=== PATIENT | female | born 1960 | race Caucasian/White ===

== ENCOUNTER 2023-10-15 14:10 | Emergency (ER) | payer MEDICARE, OTHER, SELFPAY ==
[2023-10-15 14:16] VITALS: BP 145/78
[2023-10-15 16:23] VITALS: BP 142/80
[2023-10-15 16:24] VITALS: BMI 29.0
[2023-10-15 17:11] LABS: Urine Albumin Negative (Neg - Trace); Urine Bilirubin Negative (Negative); Urine Character Clear (Clear); Urine Color Straw; Urine Glucose Negative (Negative); Urine Ketone Negative (Negative); Urine Leukocyte Negative (Negative); Urine Nitrite Negative (Negative); Urine Occult Blood 3+ (Negative); Urine Urobilinogen Negative (Neg - 1+); Urine pH 6.5 (5.0-9.0)
[2023-10-15 17:15] LABS: % Basophils 0.1 % (0-2); % Immature Granulocytes 0.6 % (0-0.5); % Lymphocytes 3.8 % (20.5-51.1); % Monocytes 3.5 % (1.7-9.3); Absolute Lymphocytes 0.3 10^3/uL (1.2-3.4); Absolute Monocytes 0.2 10^3/uL (0.1-0.6); Absolute Neutrophils 6.3 10^3/uL (1.4-6.5); Hematocrit 32.4 % (37.0-47.0); Hemoglobin 11.1 g/dL (12.0-16.0); Mean Corp Hgb Conc. 34.3 g/dL (33.0-37.0); Mean Corpuscular Hgb 35.5 pg (27.0-31.0); Mean Corpuscular Volume 103.5 fL (81.0-99.0); Mean Platelet Volume 9.2 fL (7.4-10.4); Nucleated Red Blood Cells % 0 %; Platelet Count 132 10^3/uL (130-400); Red Blood Cell Count 3.13 10^6/uL (4.20-5.40); Red Cell Dist. Width 16.9 % (11.5-14.5); White Blood Cell Count 6.9 10^3/uL (4.8-10.8)
[2023-10-15 17:21] LABS: Urine White Cell None Seen /HPF (0-5)
[2023-10-15 17:23] LABS: ALT (SGPT) 30 U/L (0-35); AST (SGOT) 24 U/L (14-36); Albumin 4.5 g/dl (3.5-5.0); Alkaline Phosphatase 68 U/L (38-126); Blood Urea Nitrogen 23 mg/dl (7-17); Calcium 10.5 mg/dl (8.4-10.2); Carbon Dioxide 28 mmol/L (22-30); Chloride 102 mmol/L (98-107); Estimated Creatinine Clearance 73 ml/min; Glucose 159 mg/dl (70-99); Magnesium 1.9 mg/dl (1.6-2.3); Potassium 3.9 mmol/L (3.5-5.1); Sodium 135 mmol/L (135-145); Total Bilirubin 0.7 mg/dl (0.2-1.3); Total Protein 7.1 g/dl (6.3-8.2); eGFR > 60.00
[2023-10-15] MEDS: DECADRON 10 MG IV (18:25)
[2023-10-15 18:32] VITALS: BP 143/82
--- NOTE | 2023-10-15 18:52 | ED.GENMED ---
History of Present Illness
General
Chief Complaint: Change in Mental Status
Source: patient and family
Exam Limitations: clinical condition
Time Seen by Provider: 10/15/23 16:33
Travel History
Have you had any contact with someone who has COVID-19?: No
Do you have any symptoms of coronavirus? Fever > 100 degrees, chills, cough, shortness of breath, sore throat, loss of taste or smell, muscle aches, or headache?: No
History of Present Illness
History of Present Illness:
This is a 62-year-old female presents with aphasia. The patient is states the symptoms have been worse over the last 3 days. Patient's actually adds that the symptoms began probably 10 days ago. Patient denies motor weakness. She has had
some urinary frequency but does have known mets in her abdomen. Patient was initially cared for at [place] but then transferred care to the [facility] for her study drug. She currently is off of that because she was having side effects. They had put
her on some steroids which she has been taking.
Past History
Past History
ED Past Medical History: Hypothyroidism and Other (Metastatic endometrial cancer, DVT)
Phy Exam
Physical Exam
Physical Exam:
CONSTITUTIONAL Patient alert and oriented to person, place and time. Well-appearing. Vital signs reviewed.
HEAD atraumatic, normocephalic.
EYES eyelids normal to inspection, Pupils equally round and reactive to light, Extraocular muscles intact, Conjunctiva normal, Sclera normal.
NECK normal range of motion, Trachea midline, no jugular venous distention.
RESPIRATORY CHEST No respiratory distress noted, Chest expansion equal, Bilateral breath sounds clear. Right chest wall port noted
CARDIOVASCULAR regular rate and rhythm, Heart sounds normal.
ABDOMEN abdomen nontender, Bowel sounds normal. No distention.
BACK normal inspection, no obvious deformities
UPPER EXTREMITY range of motion normal, Motor strength normal, no cyanosis, no edema.
LOWER EXTREMITY range of motion normal, Motor strength normal, no cyanosis, no edema.
NEURO moderate aphasia noted, no dysarthria, no focal deficits, no pronator drift..
Course
Orders/Labs/Results
Orders:
Orders
10/15/23 15:[address] [CT Head W/o Iv Contrast] Urgent
Comment:
Reason For Exam: confusion
10/15/23 17:00
Complete Blood Count/With Diff Urgent
Comprehensive Metabolic Panel Urgent
Magnesium Urgent
Urinalysis Reflex To Culture Urgent
Date Specimen was Collected: 10/15/23
Time Specimen was Collected: 16:58
Urine Microscopic Reflex Cult Urgent
10/15/23 18:22
Dexamethasone Sod Phosphate [Decadron] 10 mg IV NOW STA
Abnormal Lab Results
10/15/23
17:00
RBC 3.13 L 10^6/uL
(4.20-5.40)
Hgb 11.1 L g/dL
(12.0-16.0)
Hct 32.4 L %
(37.0-47.0)
MCV 103.5 H fL
(81.0-99.0)
MCH 35.5 H pg
(27.0-31.0)
RDW 16.9 H %
(11.5-14.5)
Absolute Lymphs (auto) 0.3 L 10^3/uL
(1.2-3.4)
Immature Gran % 0.6 H %
(0-0.5)
Neutrophils % 92.0 H %
(42.2-75.2)
Lymphocytes % 3.8 L %
(20.5-51.1)
BUN 23 H mg/dl
(7-17)
Glucose 159 H mg/dl
(70-99)
Calcium 10.5 H mg/dl
(8.4-10.2)
Ur Occult Blood Reflex 3+ A
(Negative)
Urine RBC 3-6 A /HPF
(0-2)
10/15/23 17:00
10/15/23 17:00
Vital Signs
Initial and Last Documented VS:
Initial Vital Signs
Temp Pulse Resp BP Pulse Ox
98.4 F 66 18 145/78 98
10/15/23 14:16 10/15/23 14:16 10/15/23 14:16 10/15/23 14:16 10/15/23 14:16
Last Documented Vital Signs
Temp Pulse Resp BP Pulse Ox
98.4 F 66 18 143/82 97
10/15/23 14:16 10/15/23 14:16 10/15/23 14:16 10/15/23 18:32 10/15/23 18:45
MDM/Problems Addressed
MDM/Problems Addressed:
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
*Radiology
Radiology exam reviewed: preliminary read by ED provider (Brain mass with hemorrhagic conversion)
*Pulse Oximetry
Patient hypoxic: no
*Cigarette Filter Inspector Interpretation
Rate: normal
Interpretation: normal
Rhythm: sinus
*Critical Care Note
Total Time (30-74mins, 75-104mins- exclusive of procedures): 45 minutes
Data Reviewed
Source: patient and family
Prescriptions/Medications Considered But Not Given:
Considered antiepileptics with neurosurgery at [facility] states no need at this time
Patient Management
Discussion with other providers: Gas Flow Regulator ([facility] neurosurgery Dr. Schneider)
Escalation/DeEscalation of care consider admission/obs:
62-year-old female with unfortunate history of metastatic endometrial cancer found to have a brain mass with hemorrhagic conversion and mass effect. Steroids given. Will give Kcentra in light of the fact that she took Eliquis this morning.
does confirm that she is on Eliquis. Discussed with [facility] neurosurgery. Transfer
ED Attending Note
-
Portions of this chart may have been created with voice recognition software.� Occasional wrong word or��sound alike� substitutions may have occurred due to the inherent limitations of voice recognition software.
Discharge Plan
Departure
Patient Disposition: Acute Care Hospital
Date of Disposition: 10/15/23
Time of Disposition: 18:53
Discharge Problem:
Brain mass, Intracranial hemorrhage
Referrals:
UNKNOWN - PT DOES,NOT KNOW [Family Provider] -
Hospital Transfer
I certify that the patient requires transfer: Yes
Interventions
Interventions:
*Risk Screen - Suicide Last Done: 10/15/23 14:16
*General Assessment Last Done: 10/15/23 14:16
*Neglect/Abuse Screening Last Done: 10/15/23 14:16
ED- Fall Risk Assessment Last Done: 10/15/23 16:25
*ED COVID-19 Vaccine History Last Done: 10/15/23 14:16
ED- Pulmonary Assessment Last Done: 10/15/23 16:25
ED- Neurological Assessment Last Done: 10/15/23 16:25
ED- Cardiac Assessment Last Done: 10/15/23 16:25
ED Swallowing Screen Last Done: 10/15/23 16:25
Discharge Date and Time
Print Language: LIBERIAN
[2023-10-15] MEDS: KCENTRA 80 UNIT IV (20:10)
[2023-10-15 20:37] VITALS: BP 139/91
[2023-10-15 21:11] VITALS: BP 143/86
== END 2023-10-15 21:14 | disposition short-term general hospital (02) ==
LOC: EMR 14:10
PROVIDERS: EMERGENCY PHYSICIAN Emergency Medicine
DX: I62.9 Nontraumatic intracranial hemorrhage, unspecified (principal); R47.01 Aphasia; G93.9 Disorder of brain, unspecified; R35.0 Frequency of micturition; R41.0 Disorientation, unspecified; C54.1 Malignant neoplasm of endometrium; C79.9 Secondary malignant neoplasm of unspecified site; E03.9 Hypothyroidism, unspecified; Z86.718 Personal history of other venous thrombosis and embolism; Z79.01 Long term (current) use of anticoagulants; Z88.8 Allergy status to other drugs, medicaments and biological substances; Z91.013 Allergy to seafood
CPT/HCPCS: 99291; 96374; 96375; 70450; 80053; 81003; 81015; 83735; 85025; J7168

== ENCOUNTER 2024-01-29 09:59 | Emergency (ER) | payer MEDICARE, OTHER, SELFPAY ==
[2024-01-29 10:00] VITALS: BP 139/84
[2024-01-29] MEDS: TYLENOL 1000 MG PO (10:45)
--- NOTE | 2024-01-29 10:52 | ED.GENMED ---
History of Present Illness
General
Chief Complaint: DVT/Possible Blood Clot
Source: patient and spouse
Exam Limitations: none
Time Seen by Provider: 01/29/24 10:16
Nursing documentation reviewed up to this point in time: agreed with
History of Present Illness
History of Present Illness:
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 She felt
slight discomfort in left calf yesterday and today awakened with increased pain, swelling. Denies CP or any new SOB. She restarted her Eliquis 2.5 mg BID this a.m. which she was told to do on her discharge instructions post brain surgery.
Past History
Past History
ED Past Medical History: Hyperthyroidism, Hypothyroidism and Other (Endometrial cancer w mets to lungs and brain, PE, DVT)
ED Past Surgical History: Other (recent brain surgery)
Social History
Tobacco: Non-smoker
Alcohol: None
Personal:
Living: with family
Review of Systems
Review of Systems
Allergies reviewed?: Yes
All Other Systems: ROS reviewed and negative except as documented in HPI and ROS
Constitutional: Denies fever
Respiratory: Denies trouble breathing
Cardiac: Denies chest pain
ABD/GI: Denies abdominal pain, nausea or vomiting
Musculoskeletal: Reports other (pain and swelling left calf)
Skin: Reports other (numerous billy across frontal scalp intact, Chest access port)
Phy Exam
Physical Exam
Physical Exam:
GENERAL: No acute distress. A&Ox3.
CONSTITUTIONAL: Afebrile.
EYES: clear, conjunctivae normal
ENMT: moist mucus membranes, Pharynx nl
RESPIRATORY: Regular respirations, nonlabored, lungs clear.
CARDIOVASCULAR: Regular rate and rhythm, no murmurs, no rubs.
GI: Soft, nontender, normal BS
MUSCULOSKELETAL: Left calf +1 swollen compared to R. Tender. Normal pedal pulse. Foot warm, pink brisk capillary refill. Moves with ease. Well perfused.
SKIN: Warm, dry, pink, Chest wall port.
PSYCH: Normal mood and affect. Well kept, interactive and appropriate
NEUROLOGIC: Awake, alert and oriented. No focal neurological deficits
Course
Orders/Labs/Results
Orders:
Orders
01/29/24 10:26
US Periph Venous LOWER Ext LT Urgent
Comment:
Reason For Exam: pain, swelling L calf, hx chronic DVT thigh
01/29/24 10:37
Acetaminophen [Tylenol] 1,000 mg PO NOW STA
01/29/24 10:44
Acetaminophen [Tylenol] 1,000 mg .ROUTE .STK-MED ONE
Vital Signs
Initial and Last Documented VS:
Initial Vital Signs
Temp Pulse Resp BP Pulse Ox
98.1 F 86 18 139/84 96
01/29/24 10:00 01/29/24 10:00 01/29/24 10:00 01/29/24 10:00 01/29/24 10:00
Last Documented Vital Signs
Temp Pulse Resp BP Pulse Ox
98.1 F 86 18 139/84 96
01/29/24 10:00 01/29/24 10:00 01/29/24 10:00 01/29/24 10:00 01/29/24 10:00
MDM/Problems Addressed
Differential Diagnosis Includes:
DVT
MDM/Problems Addressed:
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 She felt
slight discomfort in left calf yesterday and today awakened with increased pain, swelling. Denies CP or any new SOB. She restarted her Eliquis 2.5 mg BID this a.m. which she was told to do on her discharge instructions post brain surgery.
Afebrile, NAD
Looked at her DC instructions and actually they say to start Eliquis 5 mg BID today.
Ultrasound report: Occlusive DVT from calf veins through femoral vein. Non occlusive DVT common femoral vein and saphenofemoral junction. Copy report given to patient. Discussed results with patient and . Discharge instructions reviewed
and all questions answered. Patient has a cane she can use, she declines when walker was offered.
Plan: Eliquis 5 mg BID, f/u with sponge press operator and oncologist
*Critical Care Note
Total Time (30-74mins, 75-104mins- exclusive of procedures): Not Applicable
ED Attending Note
-
Portions of this chart may have been created with voice recognition software.� Occasional wrong word or��sound alike� substitutions may have occurred due to the inherent limitations of voice recognition software.
Discharge Plan
Departure
Patient Disposition: Home (Routine Discharge)
Date of Disposition: 01/29/24
Time of Disposition: 12:16
Patient with high blood pressure during this ER visit?: No
Condition: Fair
Discharge Problem:
DVT of lower limb, acute
Instructions: Deep Vein Thrombosis (Blood Clots in the Legs) (DC)
Prescriptions:
No Action
prednisone 5 mg tablet
15 mg PO DAILY
cyanocobalamin (vitamin B-12) [Vitamin B-12] 1,000 mcg Tablet
1,000 mcg PO BID
valacyclovir 500 mg tablet
500 mg PO BID
sulfamethoxazole-trimethoprim 800-160 mg tablet
1 tab PO MOWEFR
acetaminophen 500 mg Tablet
1,000 mg PO BID
levothyroxine 100 mcg tablet
100 mcg PO DAILY
calcium carbonate [Calcium 500] 500 mg calcium (1,250 mg) Tablet
500 mg PO BID
zolpidem 5 mg tablet
5 mg PO HS PRN (Reason: sleep)
Patient Comments:
10/15/2023: last filled 07/26/23, 30 tabs for 30 days from [id number]
Artificial Tears (PF) Dropperette
1 drp BOTH EYES TID
Eliquis 5 mg tablet
5 mg PO BID
Toe Nail Fungus solution
1 applic topical DAILY
Patient Comments:
10/15/2023: apply to all the nails on left foot
Referrals:
Your, Oncologist and Development Technologist [Other] - 01/29/24 12:18 pm (Call your doctor's today to inform of today's visit and confirm you should be taking Eliquis 5 mg twice daily. Also make follow up appointment for this DVT.)
NONE,* [Family Provider] -
Activity Restrictions/Additional Instructions:
As we discussed, take Eliquis 5 mg twice a day
Contact your sponge press operator and your oncologist about today's visit and confirmed about the Eliquis dose and make follow-up appointment.
Interventions
Interventions:
*Risk Screen - Suicide Last Done: 01/29/24 10:42
*General Assessment Last Done: 01/29/24 10:42
*Neglect/Abuse Screening Last Done: 01/29/24 10:42
ED- Fall Risk Assessment Last Done: 01/29/24 10:43
*ED COVID-19 Vaccine History Last Done: 01/29/24 10:42
*Nursing Disposition Last Done: 01/29/24 12:26
ED- Cardiac Assessment Last Done: 01/29/24 10:27
ED- Pulmonary Assessment Last Done: 01/29/24 10:27
ED-Peripheral Vascular Assessment Last Done: 01/29/24 10:41
ED-Skin Assessment Last Done: 01/29/24 10:27
Discharge Date and Time
Discharge Date/Time: 01/29/24 13:02
Print Language: PORTUGUESE
== END 2024-01-29 13:02 | disposition home or self-care (01) ==
LOC: EMR 09:59
PROVIDERS: EMERGENCY PHYSICIAN Emergency Medicine
DX: I82.412 Acute embolism and thrombosis of left femoral vein (principal); E03.9 Hypothyroidism, unspecified; Z98.890 Other specified postprocedural states; Z85.42 Personal history of malignant neoplasm of other parts of uterus; C79.31 Secondary malignant neoplasm of brain; C78.00 Secondary malignant neoplasm of unspecified lung; Z86.718 Personal history of other venous thrombosis and embolism; Z86.711 Personal history of pulmonary embolism; Z79.01 Long term (current) use of anticoagulants; Z88.8 Allergy status to other drugs, medicaments and biological substances; Z91.013 Allergy to seafood
CPT/HCPCS: 99284; 93971

== ENCOUNTER → 2024-04-11 09:46 | Outpatient (REF) | payer MEDICARE, OTHER, SELFPAY ==
[2024-04-11 10:25] VITALS: BP 108/60; BP_SYST 81
[2024-04-11 11:06] VITALS: BP 103/70
== END ==
LOC: RADI 09:46
PROVIDERS: ATTENDING PHYSICIAN Internal Medicine
DX: C80.1 Malignant (primary) neoplasm, unspecified (principal); J91.0 Malignant pleural effusion
CPT/HCPCS: 32555; 71045

== ENCOUNTER → 2024-04-21 09:57 | Outpatient (REF) | payer MEDICARE, OTHER, SELFPAY ==
[2024-04-21 10:08] VITALS: BP 105/74; BP_SYST 86
[2024-04-21 10:35] VITALS: BP 123/73
== END ==
LOC: RADI 09:57
PROVIDERS: ATTENDING PHYSICIAN Internal Medicine; REFERRING PHYSICIAN Specialist
DX: J90 Pleural effusion, not elsewhere classified (principal)
CPT/HCPCS: 32555; 71045

== ENCOUNTER → 2024-04-25 12:46 | Outpatient (REF) | payer MEDICARE, OTHER, SELFPAY ==
[2024-04-25 13:05] VITALS: BP 154/80; BP_SYST 89
[2024-04-25 13:25] VITALS: BP 106/74; BP_SYST 75
[2024-04-25 13:55] VITALS: BP 106/74
== END ==
LOC: RADI 12:46
PROVIDERS: ATTENDING PHYSICIAN Internal Medicine
DX: C80.1 Malignant (primary) neoplasm, unspecified (principal); J91.0 Malignant pleural effusion
CPT/HCPCS: 32555; 71045

== ENCOUNTER → 2024-04-30 08:03 | Outpatient (REF) | payer MEDICARE, OTHER, SELFPAY ==
[2024-04-30 08:30] VITALS: BP 139/71; BP_SYST 91
[2024-04-30 09:52] VITALS: BP 98/65; BP_SYST 84
[2024-04-30 09:53] VITALS: BP 94/60
== END ==
LOC: RADI 08:03
PROVIDERS: ATTENDING PHYSICIAN Internal Medicine; FAMILY PHYSICIAN Specialist
DX: C80.1 Malignant (primary) neoplasm, unspecified (principal); J91.0 Malignant pleural effusion
CPT/HCPCS: 32555; 71045

== ENCOUNTER → 2024-05-05 10:02 | Outpatient (REF) | payer MEDICARE, OTHER, SELFPAY ==
[2024-05-05 10:35] VITALS: BP 150/78; BP_SYST 83
[2024-05-05 10:54] VITALS: BMI 26.7
[2024-05-05] MEDS: ANCEF 10 IV (11:44)
[2024-05-05 12:35] VITALS: BP 99/68
[2024-05-05 12:40] VITALS: BP 96/74
[2024-05-05 13:35] VITALS: BP 100/60
== END ==
LOC: RADI 10:02
PROVIDERS: ATTENDING PHYSICIAN Internal Medicine
DX: J90 Pleural effusion, not elsewhere classified (principal); Z85.3 Personal history of malignant neoplasm of breast
CPT/HCPCS: 32550; 75989; 99152; 99153; C1729; C1769